=== PATIENT | female | born 1995 | race Two or more races ===

== ENCOUNTER 2025-01-26 11:53 | Emergency (ER) | payer BC, SELFPAY ==
[2025-01-26 11:53] VITALS: BMI 30.4
--- NOTE | 2025-01-26 11:56 | EKG_ITS ---
[facility] Test Date: 2025-01-26 Pat Name: ESTEFANY OCHOA Department: Room: - Gender: Female Sterile Proc Tech: : 1995 Requested By: ED Temporary Provider Order Number: [id number] Reading MD: ED Temporary Provider Measurements Intervals [place] Rate: 92 P: 50 VA: 159 QRS: 57 QRSD: 96 T: 52 QT: 350 QTc: 433 Interpretive Statements SINUS RHYTHM Compared to ECG 10/19/2022 17:51:39 No significant changes /store/S0/[id number].pdf
--- NOTE | 2025-01-26 12:18 | XR_ITS ---
EXAMINATION: PA lateral chest 2 views TECHNIQUE: Upright PA lateral chest 2 views Date and time: January 26, 2025, 12:25 p.m. INDICATIONS: Chest pain shortness of breath today with high blood pressure FINDINGS: Normal heart size. Lungs are clear. The osseous structures are intact IMPRESSION: No active disease
--- NOTE | 2025-01-26 12:19 | PD.EDRME ---
Rapid Medical Screening Exam RME Arrival date/time: 01/26/25 11:53 29-year-old female with no known medical history presents to the emergency room with a chief complaint of 8 out of 10 chest tightness x 45 minutes. I have greeted and performed a focused initial assessment of this patient. A comprehensive ED assessment and evaluation of the patient, analysis of all test results, and completion of the medical decision making process will be conducted by additional ED providers. Chief Complaint: Chest Pain Time Seen by Provider: 01/26/25 12:06 Vital signs reviewed by provider: Yes
[2025-01-26 12:33] VITALS: BP 111/76; PULSE 96; RESP 18; TEMP 36.6; O2SAT 97
[2025-01-26 12:50] LABS: Collection Type, Urine Clean Catch; Squamous Epithelial Cell,Urine 0 /hpf (0-5)
[2025-01-26 12:58] LABS: Basophils # (Auto) 0.1 Thou/mm3 (0.0-0.2); Basophils % (Auto) 1 % (0-2.5); Eosinophils # (Auto) 0.1 Thou/mm3 (0.0-0.5); Eosinophils % (Auto) 1 % (0-10); Hematocrit 39.0 % (36.0-46.0); Hemoglobin 13.2 g/dL (12.0-16.0); Immature Granulocytes Auto 0.03 Thou/mm3 (0.00-0.00); Lymphocytes # (Auto) 2.0 Thou/mm3 (1.0-4.8); Lymphocytes % (Auto) 25 % (10-50); Mean Corpuscular HGB Conc 33.8 g/dl (31.0-37.0); Mean Corpuscular Hemoglobin 29.1 pg (25.0-35.0); Mean Corpuscular Volume 86 fL (80-100); Monocytes # (Auto) 0.6 Thou/mm3 (0.0-0.8); Monocytes % (Auto) 7 % (0-12); Neutrophils # (Auto) 5.2 Thou/mm3 (1.8-7.7); Neutrophils % (Auto) 65 % (37-80); Nucleated Red Blood Cell # 0.00 Thou/mm3 (0.00-0.00); Nucleated Red Blood Cell % 0 /100 WBC (0); Platelet Count 330 Thou/mm3 (140-440); RDW Standard Deviation 41.9 fL (36.4-46.3); Red Blood Count 4.53 Miln/mm3 (4.00-5.20); White Blood Count 7.9 Thou/mm3 (3.6-11.0)
--- NOTE | 2025-01-26 12:58 | XR_ITS ---
Examination: CT brain head without contrast. 2-D sagittal coronal reconstructions Date and time of exam: January 26, 2025, 1419 hours INDICATIONS: Generalized head pain with dizziness hypertension today COMPARISON: October 19, 2022 CTDI: vol (mGy): 53.8 DLP: (mGycm): 1083 Technique: Multiple CT axial sections of the brain have been obtained, 5 mm slice thickness. Contrast has not been administered. 2-D sagittal, coronal reconstructions have been obtained Low dose protocols were performed. One or more of the following dose reduction techniques were used; automated exposure control, adjustment of the mA and/or KV according to patient size, use of iterative reconstruction technique. Findings: No significant ventricular enlargement. Intra-axial or extra-axial hemorrhage density is not seen. No mass effect or midline shift Basal cisterns are not remarkable. Fourth ventricle is midline. Cranial vault intact. Impression: Negative for acute hemorrhage, mass effect or midline shift Advise clinical correlation and follow-up accordingly
[2025-01-26 13:01] LABS: Bilirubin,Urine Negative (Negative); Blood,Urine 1+ (Negative); Clarity,Urine Clear (Clear/Hazy); Culture Indicated,Urine Not Indicated; Glucose, Urine Negative (Negative); Ketones,Urine Negative (Negative); Leukocyte Esterase,Urine Negative (Negative); Nitrite,Urine Negative (Negative); PH,Urine 6.5 (5.0-7.0); Protein,Urine Negative (Neg - Trace); RBC,Urine 3 /hpf (0-3); Specific Gravity,Urine 1.007 (1.001-1.035); Urobilinogen,Urine Negative mg/dL (0.0-1.0); WBC,Urine < 1 /hpf (0-5)
[2025-01-26 13:14] LABS: B-Type Natriuretic Peptide < 20 pg/mL (0-100)
[2025-01-26 13:16] LABS: Alanine Aminotransferase 14 U/L (10-49); Albumin, Serum 5.3 gm/dL (3.5-5.0); Albumin/Globulin Ratio 1.5 (1.2-2.2); Alkaline Phosphatase 72 U/L (46-116); Anion Gap 11 (7-16); Aspartate Amino Transferase 27 U/L (0-34); BUN/Creatinine Ratio 7 Ratio (12-20); Bilirubin,Total 0.5 mg/dL (0.3-1.2); Blood Urea Nitrogen < 5 mg/dL (9-23); Calcium 9.8 mg/dL (8.3-10.6); Calcium (Corrected) 9.8 mg/dL (8.5-10.1); Carbon Dioxide 27.9 mMol/L (20.0-31.0); Chloride 102 mMol/L (98-107); Creatinine (Component) 0.7 mg/dL (0.6-1.3); Estimated Creatinine Clearance 139.7 mL/min (>60); Globulin 3.6 gm/dL (2.3-3.5); Glucose 96 mg/dL (74-106); Magnesium 2.0 mg/dL (1.6-2.6); Osmolality,Calculated 278 (275-295); Potassium 3.2 mMol/L (3.4-5.1); Sodium 141 mMol/L (136-145); Total Protein 8.9 gm/dL (5.7-8.2); Troponin I < 0.002 ng/mL (0.0-0.045); eGFR > 60 See Note
[2025-01-26 13:17] LABS: INR 1.0 (0.9-1.3); Partial Thromboplastin Time 33.3 Seconds (22.0-36.0); Prothrombin Time 11.1 Seconds (9.0-12.2)
[2025-01-26 13:30] LABS: Color,Urine Lt-Yellow (Lt Yel-Yel)
[2025-01-26 14:03] LABS: Amphetamine/Methamp Scrn,U Negative (Negative); Barbiturate Screen,Urine Negative (Negative); Benzodiazepines Screen,Urine Negative (Negative); Benzoylecgonine Screen, Ur Negative (Negative); Fentanyl Screen,Urine Negative (Negative); Opiate Screen,Urine Negative (Negative); THC Screen,Urine Negative (Negative)
--- NOTE | 2025-01-26 15:51 | EDNOTE_ITS ---
ED Chest Pain RME/HPI General Chief Complaint: Chest Pain Stated Complaint: DIZZY/CXP x 30 MINUTES, HIGH B/P Time Seen by Provider: 01/26/25 12:06 Arrival date/time: 01/26/25 11:53 This is a case of 29-year-old female with history of preeclampsia came in in the emergency room with multiple symptoms patient stated that she has on and off chest pain but no shortness of breath no palpitation today patient is also having dizziness and tinnitus or ringing on the ears for 3 day and her blood pressure was elevated noted as 180/100 at home patient states that he was on blood pressure medication before after and was placed on metoprolol but after few months her PCP stopped the medication encouraged her blood pressure is normal no other symptoms noted Limitations: no limitations RME / HPI RME / HPI narrative: 01/26/25 11:53 29-year-old female with no known medical history presents to the emergency room with a chief complaint of 8 out of 10 chest tightness x 45 minutes. I have greeted and performed a focused initial assessment of this patient. A comprehensive ED assessment and evaluation of the patient, analysis of all test results, and completion of the medical decision making process will be conducted by additional ED providers. Related Data Previous Rx's ?Medication ?Instructions ?Recorded ferrous sulfate 325 mg (65 mg 325 mg PO BID #120 tabs 01/30/19 iron) tablet hydroxyzine pamoate 50 mg capsule 50 mg PO QHSPRN PRN sleeplessnes 01/30/19 (Vistaril) #10 caps meclizine 25 mg tablet 25 mg PO TID PRN dizziness # 20 tabs 01/26/25 ondansetron 4 mg disintegrating 4 mg PO Q8H #20 tabs 1 tablet Allergies Allergy/AdvReac Type Severity Reaction Status Date / Time Penicillins Allergy Severe Rash Verified 01/26/25 11:55 Review of Systems Review of Systems Systems Reviewed: All systems reviewed, normal except as documented Constitutional Constitutional: Reports system reviewed and no additional complaints, except as documented and Reports as per HPI Eyes Eyes: Reports system reviewed and no additional complaints, except as documented and Reports as per HPI ENT Ears, Nose, Mouth, and Throat: Reports system reviewed and no additional complaints, except as documented and Reports as per HPI Cardiovascular Cardiovascular: Reports system reviewed and no additional complaints, except as documented and Reports as per HPI Respiratory Respiratory: Reports system reviewed and no additional complaints, except as documented and Reports as per HPI Gastrointestinal Gastrointestinal: Reports system reviewed and no additional complaints, except as documented and Reports as per HPI Neurologic Neurologic: Reports system reviewed and no additional complaints, except as documented and Reports as per HPI Past Medical History Past Medical History NEUROLOGIC: Negative Neurological Disorders CARDIAC: Negative Cardiac Disorders or Congestive Heart Failure RESPIRATORY: Negative Chronic Obstructive Pulmonary Disease (COPD) GASTROINTESTINAL: Negative Gastrointestinal Disorders, Hepatitis or Colorectal Cancer GENITOURINARY: Negative Genitourinary Disorders, Renal Disease or Prostate Cancer REPRODUCTIVE: Negative Breast Cancer or Testicular Cancer MUSCULOSKELETAL: Negative Musculoskeletal Disorders or Bone Cancer ENDOCRINE: Negative Endocrine Disorders, Diabetes Mellitus Type 1 or Diabetes Mellitus Type 2 HEMATOLOGIC: Negative Blood Disorders OTHER HISTORY: Negative Hospitalization, Autoimmune Disease, Down Syndrome, Developmental Delay, Shingles, Falls, Blood Transfusions, Blood Transfusion Reaction, Anesthesia Reactions, Organ Transplant, Chemotherapy, Radiation Therapy, Hyperbaric Therapy, MRSA, VRSA, Vancomycin-Resistant Enterococci, Human Immunodeficiency Virus (HIV), Chicken Pox, Measles, Mumps, Rubella (Tajik Measles), Pertussis, Clostridium Difficile, Cancer, Breast Cancer, Cervical Cancer, Colorectal Cancer, Lung Cancer, Ovarian Cancer, Prostate Cancer or Testicular Cancer Family History FAMILY HISTORY: Positive Family Cardiac Disorders (sofia bp- grandma), Family Gastrointestinal Problems (stomach ulcers-mother) and Family Surgery (knee replacement-grandmother cholecystectomy); Negative Family Psychiatric Problems, Family Respiratory Disorders, Family Cancer or Family Anesthesia Reaction Surgical History SURGICAL: Negative Section or Organ Transplant Social History SMOKING STATUS: Never smoker ED Exam General Limitations: Present no limitations General appearance: Present alert, in no apparent distress and other Head Head exam: Present atraumatic, normocephalic and normal inspection Eye Eye exam: Present normal appearance, PERRL, EOMI and other (PERRL EOM intact normal conjunctiva no papilledema no hyphema) ENT ENT exam: Present normal exam, normal oropharynx, mucous membranes moist and other (HEENT exam is normal and unremarkable) Neck Neck exam: Present normal inspection, full ROM, trachea midline and other; Absent tenderness, meningismus, lymphadenopathy or thyromegaly Chest Chest inspection: Present normal inspection and symmetric chest wall rise; Absent tenderness Respiratory Respiratory exam: Present normal lung sounds bilaterally and other; Absent respiratory distress, wheezes, stridor, accessory muscle use or prolonged expiratory phase Cardiovascular Cardiovascular exam: Present regular rate, normal rhythm, normal heart sounds and other; Absent bradycardia, tachycardia, irregular rhythm, systolic murmur or diastolic murmur Abdominal Exam Abdominal exam: Present soft and normal bowel sounds; Absent distention, tenderness, guarding, rebound, rigidity, diminished bowel sounds, hyperactive bowel sounds, hypoactive bowel sounds or organomegaly Extremities Exam Extremities exam: Present normal inspection and full ROM Back Exam Back exam: Present normal inspection and full ROM Neurological Exam Neurological exam: Present alert, oriented X3, CN II-XII intact, normal gait, reflexes normal and other (Awake alert oriented x 4 no focal deficit GCS 15/15 steady gait memory intact no slurring speech no facial droop negative Babinski motor or sensory reflex are all normal in all extremities CN II to 12 is int act); Absent motor sensory deficit Psychiatric Psychiatric exam: Present normal affect and normal mood Skin Skin exam: Present warm, dry, intact, normal color and other (Excellent skin turgor) Course Quality Measures none Orders Category Date Time Status EKG (ED ONLY) *Do not use* NOW Care 01/26/25 11:[address] head/brain wo con Stat Exams 01/26/25 12:58 Completed EKG (ED Only) Stat Exams 01/26/25 11:56 Draft XR chest 2V Stat Exams 01/26/25 12:18 Completed B-Type Natriuretic Peptide Stat Lab 01/26/25 12:35 Completed CBC Stat Lab 01/26/25 12:35 Completed Comprehensive Metabolic Panel Stat Lab 01/26/25 12:35 Completed Drug Screen,Urine Stat Lab 01/26/25 12:41 Completed Magnesium Stat Lab 01/26/25 12:35 Completed Partial Thromboplastin Time Stat Lab 01/26/25 12:35 Completed Prothrombin Time with INR Stat Lab 01/26/25 12:35 Completed Troponin I Stat Lab 01/26/25 12:35 Completed Urinalysis, C/S if Indicated Stat Lab 01/26/25 12:41 Completed Potassium Chloride [K-Dur] Med 01/26/25 14:34 Discontinued 40 meq PO X1 ONE Vital Signs Vital signs: Vital Signs Temperature 98 F 01/26/25 12:33 Pulse Rate 96 01/26/25 12:33 Respiratory Rate 18 01/26/25 12:33 Blood Pressure 111/76 01/26/25 12:33 Pulse Oximetry (%) 97 10/13/25 12:33 Oxygen Delivery Method Room Air 01/26/25 12:33 Patient is afebrile not tachycardic not hypoxic not tachypneic BP is stable Chest Pain MDM Narrative MDM Narrative:: This is a case of 29-year-old female with history of preeclampsia came in in the emergency room with multiple symptoms patient stated that she has on and off chest pain but no shortness of breath no palpitation today patient is also having dizziness and tinnitus or ringing on the ears for 3 day and her blood pressure was elevated noted as 180/100 at home patient states that he was on blood pressure medication before after and was placed on metoprolol but after few months her PCP stopped the medication encouraged her blood pressure is normal no other symptoms noted physical examination patient is awake alert oriented not in distress nontoxic looking BP is stable and normal not tachycardic not tachypneic afebrile and nonhypoxic patient neurological exam is normal awake alert oriented x 4 no focal deficit GCS 15/15 steady gait memory intact no slurring speech no facial droop motor or sensory reflex in all extremities were normal negative Babinski lungs sound is clear no crackles no rales no retraction no stridor heart normal rate regular rhythm no murmur no edema the rest of the physical examination and HEENT exam is normal PERRLA EOM intact normal conjunctiva no papilledema no hyphema blood test showed no leukocytosis no anemia kidney and liver function is normal patient sodium is normal patient potassium is 3.2?patient was given K. Dur 40 mEq and patient will follow-up with PCP to repeat the level as an outpatient patient troponin is negative patient EKG is sinus rhythm chest x-ray is normal at this time I do not think patient is having myocardial infarction or pulmonary embolism since the blood test EKG and troponin were negative I do not think patient symptoms is cardiopulmonary pathology patient due to dizziness and tinnitus thus CT scan of the head was ordered and still normal patient was advised to follow-up with PCP in 2 days for reevaluation and to be referred to non destructive testing technician for chest pain for possible echocardiogram stress test and Holter monitor she also need to see an ENT specialist for tinnitus and she needs to monitor his blood pressure and possible start on blood pressure medication for any worsening symptoms or any emergent condition she was advised to return in the ER immediately or call 911 Patient was discharged with comfortable condition walking with stable gait. Patient verbalized no further complains explained diagnosis and answered patient question. Patient is comfortable with the proposed management plan including the need to follow up with his/her primary care physician and any specialist if applicable Discussed patient for any urgent condition or worsening sx, He/She needed to go to emergency room immediately or call 911. Patient acknowledge the responsibility to follow up as instructed and to monitor her/his symptoms. For any persistence of the symptoms for more than 3-5 days return precaution advised. Discussed the result of the test and was given printed discharge instruction Patient data External records reviewed:: [facility] previous records Clinical information provided by:: patient Social determinants that could affect healthcare access:: none Patient has the following chronic illnesses:: None How is presenting disease/condition affected by chronic disease/condition?: no chronic disease Evaluation data The following diagnostics were reviewed and interpreted by me:: lab results, radiology exam(s) and EKG tracing(s) Lab and/or radiology exams considered but not ordered:: Reviewed Interpretation Summary: Reviewed Medications / Prescriptions Medications or Prescriptions considered but not ordered:: Given Medication administrations:: Medication Administration History Discontinued Medications Potassium Chloride (Potassium Chloride 20 Meq Tabcr) 40 meq PO X1 ONE Stop: 01/26/25 14:35 Last Admin: 01/26/25 14:52 Dose: 40 meq Documented By: SF Given Consultations Consultation(s) initiated? (list below): No Diagnosis Chest Pain Differential Diagnosis: atypical chest pain, costochondritis and chest pain Most likely diagnosis given after review of the tests above:: Chest pain of unknown etiology Admission Indicated Admission indicated?: not indicated Explain why admission is indicated or not indicated:: Not indicated Admission Request Was there a request for admission?: No Admission Attestation Admission request attestation: Not indicated Disposition Plan Disposition Plan: Discharge Discharge Attestation Discharge Attestation: The patient and all family members were given an opportunity to ask questions and understood the discharge instructions. Discharge instructions specifically effects, indications for sooner follow up or return to the emergency department, and the expected course of current diagnosis. Patient condition: Stable Discharge Plan Plan Patient Disposition: HOME (Self Care) Patient condition on transfer: Stable Prescriptions/Referrals Prescriptions/Med Rec: New meclizine 25 mg tablet 25 mg PO TID PRN (Reason: dizziness) Qty: 20 0RF ondansetron 4 mg tablet,disintegrating 4 mg PO Q8H Qty: 20 0RF No Action hydroxyzine pamoate [Vistaril] 50 mg capsule 50 mg PO QHSPRN PRN (Reason: sleeplessnes) Qty: 10 0RF ferrous sulfate 325 mg (65 mg iron) tablet 325 mg PO BID Qty: 120 0RF Rx Instructions: Be sure to take your iron pills on an empty stomach, with orange juice Referrals: Rob Paiz MD [Primary Care Provider, Family Practice] - In 1 week Problem List Clinical Impression: Chest pain of unknown etiology, Dizziness, Elevated BP without diagnosis of hypertension, Tinnitus, Hypokalemia Patient/Caregiver Discharge Instructions Education Materials: Tinnitus (Ringing in the Ears), ED Chest Pain, Uncertain Cause, ED Dizziness, Uncertain Cause, ED High Blood Pressure ..., ED Hypokalemia Additional Instructions: Follow-up with your primary care physician in 2 days for reevaluation and to be referred to non destructive testing technician for further evaluation and treatment of chest pain for possible echocardiogram stress test and Holter monitor it is very important to follow-up with your primary care physician and to monitor your blood pressure and possible start of blood pressure medication continue to monitor your blood pressure if your blood pressure greater than 160/100 or become symptomatic you need to return in the emergency room immediately or call 911 you need to be referred to ENT for your tinnitus worsening symptoms or any emergent concern recurrence of the symptoms return precaution in the ER is advised take your medication as directed keep hydrated is advised follow-up with your primary care physician to monitor your potassium level as an outpatient Print Language: Greek Stand Alone Forms: Valentina Award Info., Patient Portal Info Letter PA/LENY Supervising Physician KI/LENY Supervising Physician: Dr. Humphrey
[2025-01-26 16:01] VITALS: BP 158/95; PULSE 89; RESP 18; O2SAT 97
== END 2025-01-26 16:19 | disposition home or self-care (01) ==
PROVIDERS: Nurse Practitioner Family; Emergency Provider Family Medicine; PCP Family Medicine
DX: R07.9 Chest pain, unspecified (principal); R42 Dizziness and giddiness; R03.0 Elevated blood-pressure reading, without diagnosis of hypertension; E87.6 Hypokalemia; H93.13 Tinnitus, bilateral
CPT/HCPCS: 36415; 70450; 71046; 80053; 80307; 81001; 83735; 83880; 84484; 85025; 85610; 85730; 93005; 99283; A9270